=== PATIENT | male | born 1940 | race Caucasian/White ===

== ENCOUNTER 2018-08-14 03:06 | Inpatient (IN) | payer MEDICARE, OTHER ==
[~2018-08-14] VITALS: Ht 177.8 cm; Wt 53.5 kg
[2018-08-14] MEDS ORDERED: SODIUM CHLORIDE 0.9% 1,000 ML IV ONE (03:13)
--- NOTE | 2018-08-14 03:21 | NUR ---
PT ARRIVED VIA EMS GLF TRIPPED IN HOLE IN YARD. LEFT LEG ROTATED OUT. PAIN 10/26. VSS.
[2018-08-14] MEDS ORDERED: ONDANSETRON 2MG/ML, 2ML IVPush ONE (03:30)
[2018-08-14] MEDS ORDERED: SODIUM CHLORIDE FLUSH 10ML SYR IVF ONE (03:30)
[2018-08-14] MEDS ORDERED: MORPHINE SULFATE 4 MG/ML, 1ML IVPush PRN (03:30)
[2018-08-14] MEDS ORDERED: FLUT1DIS5 IH (03:37)
[2018-08-14] MEDS ORDERED: TIOT18CA INH (03:37)
[2018-08-14] MEDS ORDERED: ONDANSETRON 2MG/ML, 2ML ONE ×2 (03:39→09:45)
[2018-08-14 03:49] LABS: BASOPHILS # (AUTO) 0.05 x10^3/uL (0-0.1); BASOPHILS % (AUTO) 1 % (0-1); EOSINOPHILS # (AUTO) 0.01 x10^3/uL (0-0.4); EOSINOPHILS % (AUTO) 0 % (1-7); LYMPHOCYTES # (AUTO) 1.24 x10^3/uL (1-3.4); LYMPHOCYTES % (AUTO) 12 % (22-44); MD NO; MEAN CORPUSCULAR HGB CONC 34.1 g/dL (33.2-36.2); MEAN CORPUSCULAR VOLUME 94.1 fL (81-97); MEAN PLATELET VOLUME 9.5 fL (7.4-10.4); MONOCYTES # (AUTO) 0.75 x10^3/uL (0.2-0.8); MONOCYTES % (AUTO) 7 % (2-9); NEUTROPHILS # (AUTO) 8.17 x10^3/uL (1.8-6.8); NEUTROPHILS % (AUTO) 80 % (42-75); PLATELET COUNT 132 x10^3/uL (130-400); RED BLOOD COUNT 4.54 x10^6/uL (4.38-5.82); RED CELL DISTRIBUTION WIDTH 14.5 % (9.4-14.8)
[2018-08-14 03:58] LABS: INTERNATIONAL NORMALIZED RATIO 0.96 (0.93-1.1); PROTHROMBIN TIME 10.1 Seconds (9.6-11.5)
[2018-08-14 04:01] LABS: ALANINE AMINOTRANSFERASE 17 U/L (12-78); ALBUMIN 3.8 g/dL (3.4-5.0); ANION GAP 4 mmol/L (5-15); CHLORIDE 106 mmol/L (98-107); CREATININE 1.41 mg/dL (0.7-1.3)
[2018-08-14 04:03] LABS: ALKALINE PHOSPHATASE 88 U/L (45-117); BILIRUBIN,TOTAL 0.3 mg/dL (0.2-1.0); TOTAL PROTEIN 7.3 g/dL (6.4-8.2)
[2018-08-14] MEDS ORDERED: SIMVASTATIN PO (04:25)
[2018-08-14] MEDS ORDERED: MUCINEX PO (04:25)
[2018-08-14] MEDS ORDERED: RANITIDINE PO (04:25)
[2018-08-14] MEDS ORDERED: MORPHINE SULFATE 4 MG/ML, 1ML ONE (04:32)
[2018-08-14] MEDS ORDERED: CLOP75TA52 PO (04:37)
--- NOTE | 2018-08-14 04:41 | NUR ---
REPORT CALLED TO RUPESH CRUMP. MORPHINE IVP GIVEN FOR PAIN. HOSPITALIST AT BEDSIDE.
[2018-08-14 05:02] VITALS: BP 131/75
[2018-08-14] MEDS ORDERED: D5%-0.45NACL+KCL 20MEQ 1,000 ML IV SCH (05:36)
[2018-08-14] MEDS ORDERED: ENALAPRILAT 1.25 MG/ML, 2ML IVPush PRN (06:00)
[2018-08-14] MEDS ORDERED: PLEASE ENTER ALLERGIES MC SCH (06:00)
[2018-08-14] MEDS ORDERED: ONDANSETRON 2MG/ML, 2ML IVPush PRN (06:00)
[2018-08-14] MEDS ORDERED: [UNRECOGNIZED DRUG - REMARK] MC SCH (07:00)
[2018-08-14 07:15] VITALS: BP 123/74
[2018-08-14] MEDS: morphine SULFATE 10 MG/ML, 1ML IVPush PRN ×4 (08:06→17:00)
[2018-08-14] MEDS ORDERED: CEFAZOLIN 1,000 MG ONE (09:45)
[2018-08-14] MEDS ORDERED: PROPOFOL 10 MG/ML, 20ML ONE (09:45)
[2018-08-14] MEDS ORDERED: DEXAMETHASONE 4 MG/ML, 1ML ONE (09:45)
[2018-08-14] MEDS ORDERED: PHENYLEPHRINE 10 MG/ML ONE (09:45)
[2018-08-14] MEDS ORDERED: SUCCINYLCHOLINE 20 MG/ML, 10ML ONE (09:45)
[2018-08-14] MEDS ORDERED: ROCURONIUM 10MG/ML,5ML ONE (09:45)
[2018-08-14] MEDS: IPRATROPIUM 0.5 MG/2.5 ML INHA NPPB SCH ×3 (09:50→21:30)
[2018-08-14] MEDS: BUDESONIDE 0.5 MG/2 ML INHA NPPB SCH ×2 (09:50→21:30)
[2018-08-14 15:49] VITALS: BP 149/85
[2018-08-14] MEDS ORDERED: CYAN100072 PO (17:23)
[2018-08-14] MEDS ORDERED: ASPI-496 PO (17:23)
[2018-08-14] MEDS ORDERED: HALOPERIDOL 5 MG/ML IV PRN (19:30)
[2018-08-14] MEDS ORDERED: OXYcodone 5 MG/5 ML ORAL.SOL UDC PO PRN (19:30)
[2018-08-14] MEDS ORDERED: PROCHLORPERAZINE 5 MG/ML, 2ML IV PRN (19:30)
[2018-08-14] MEDS ORDERED: METOPROLOL 1 MG/ML, 5ML IV PRN (19:30)
[2018-08-14] MEDS ORDERED: hydrALAzine 20 MG/ML, 1ML IV PRN (19:30)
[2018-08-14] MEDS ORDERED: MEPERIDINE/PF 25MG/0.5ML IVPush PRN (19:30)
[2018-08-14] MEDS ORDERED: PROMETHAZINE 25 MG/ML, 1ML IV PRN (19:30)
[2018-08-14] MEDS ORDERED: LABETALOL 5MG/ML, 20ML IV PRN (19:30)
[2018-08-14] MEDS ORDERED: HYDROmorphone 2 MG/ML, 1ML IVPush PRN (19:30)
[2018-08-14] MEDS ORDERED: FENTANYL PF 100 MCG/2ML ONE ×2 (20:02→21:30)
[2018-08-14] MEDS ORDERED: OXYcodone 5 MG/5 ML ORAL.SOL UDC ONE (21:30)
[2018-08-14] MEDS: FENTANYL PF 100 MCG/2ML IV PRN ×3 (21:39→22:05)
[2018-08-14] MEDS ORDERED: NICOTINE 21 MG/24 HR PATCH.TD24 TD SCH (23:00)
[2018-08-15] MEDS: NICOTINE 21 MG/24 HR PATCH.TD24 TD SCH ×2 (00:30→23:22)
[2018-08-15 00:55] VITALS: BP 114/71
[2018-08-15] MEDS: morphine SULFATE 10 MG/ML, 1ML IVPush PRN ×3 (02:07→09:57)
[2018-08-15] MEDS: IPRATROPIUM 0.5 MG/2.5 ML INHA NPPB SCH ×4 (03:12→21:00)
[2018-08-15] MEDS: CEFAZOLIN 2,000 MG in SODIUM CHLORIDE 0.9% 50 ML IV SCH ×3 (04:03→19:46)
[2018-08-15] MEDS: D5%-0.45NACL+KCL 20MEQ 1,000 ML IV SCH ×2 (04:04→12:20)
[2018-08-15] MEDS: ONDANSETRON 2MG/ML, 2ML IV PRN ×2 (04:17→09:57)
[2018-08-15] MEDS ORDERED: D5%-0.45NACL+KCL 20MEQ 1,000 ML IV SCH (05:36)
[2018-08-15] MEDS: ENOXAPARIN 40 MG/0.4 ML SQ SCH (05:36)
[2018-08-15 05:47] LABS: BASOPHILS # (AUTO) 0.03 x10^3/uL (0-0.1); BASOPHILS % (AUTO) 0 % (0-1); EOSINOPHILS % (AUTO) 0 % (1-7); LYMPHOCYTES # (AUTO) 0.74 x10^3/uL (1-3.4); LYMPHOCYTES % (AUTO) 7 % (22-44); MD NO; MEAN CORPUSCULAR HEMOGLOBIN 31.4 pg (27.5-34.5); MEAN CORPUSCULAR VOLUME 95.2 fL (81-97); MEAN PLATELET VOLUME 9.8 fL (7.4-10.4); MONOCYTES # (AUTO) 1.04 x10^3/uL (0.2-0.8); MONOCYTES % (AUTO) 10 % (2-9); NEUTROPHILS # (AUTO) 8.91 x10^3/uL (1.8-6.8); NEUTROPHILS % (AUTO) 83 % (42-75); PLATELET COUNT 118 x10^3/uL (130-400); RED BLOOD COUNT 4.44 x10^6/uL (4.38-5.82); RED CELL DISTRIBUTION WIDTH 14.4 % (9.4-14.8)
[2018-08-15 05:57] LABS: ANION GAP 3 mmol/L (5-15); CALCIUM 8.5 mg/dL (8.5-10.1); CHLORIDE 102 mmol/L (98-107)
[2018-08-15 08:47] VITALS: BP 112/72
[2018-08-15] MEDS: BUDESONIDE 0.5 MG/2 ML INHA NPPB SCH ×2 (09:20→21:00)
[2018-08-15] MEDS: HYDROcodone/APAP 5/325 TABLET PO PRN ×2 (12:20→18:24)
[2018-08-15 13:25] VITALS: BP 114/70
[2018-08-15 20:21] VITALS: BP 112/68
[2018-08-16 00:30] VITALS: BP 130/78
[2018-08-16] MEDS: HYDROcodone/APAP 5/325 TABLET PO PRN ×4 (00:33→20:12)
[2018-08-16] MEDS: IPRATROPIUM 0.5 MG/2.5 ML INHA NPPB SCH ×4 (02:40→21:00)
[2018-08-16] MEDS: ENOXAPARIN 40 MG/0.4 ML SQ SCH (06:26)
[2018-08-16 07:24] LABS: ANION GAP 4 mmol/L (5-15); CALCIUM 8.2 mg/dL (8.5-10.1); CHLORIDE 100 mmol/L (98-107); CREATININE 1.19 mg/dL (0.7-1.3)
[2018-08-16 07:42] LABS: MEAN CORPUSCULAR HEMOGLOBIN 31.6 pg (27.5-34.5); MEAN CORPUSCULAR HGB CONC 33.5 g/dL (33.2-36.2); MEAN CORPUSCULAR VOLUME 94.2 fL (81-97); MEAN PLATELET VOLUME 9.9 fL (7.4-10.4); PLATELET COUNT 86 x10^3/uL (130-400); RED BLOOD COUNT 3.74 x10^6/uL (4.38-5.82); RED CELL DISTRIBUTION WIDTH 13.7 % (9.4-14.8)
[2018-08-16 08:18] LABS: BASOPHILS # (AUTO) 0.02 x10^3/uL (0-0.1); BASOPHILS % (AUTO) 0 % (0-1); EOSINOPHILS # (AUTO) 0.01 x10^3/uL (0-0.4); EOSINOPHILS % (AUTO) 0 % (1-7); LYMPHOCYTES # (AUTO) 1.42 x10^3/uL (1-3.4); LYMPHOCYTES % (AUTO) 17 % (22-44); MD SCAN; MONOCYTES # (AUTO) 0.84 x10^3/uL (0.2-0.8); MONOCYTES % (AUTO) 10 % (2-9); NEUTROPHILS # (AUTO) 6.13 x10^3/uL (1.8-6.8); NEUTROPHILS % (AUTO) 73 % (42-75)
[2018-08-16 08:40] VITALS: BP 101/62
[2018-08-16] MEDS: BUDESONIDE 0.5 MG/2 ML INHA NPPB SCH ×2 (09:00→21:00)
[2018-08-16 13:58] VITALS: BP 93/60
[2018-08-16 20:28] VITALS: BP 102/71
[2018-08-17 01:36] VITALS: BP 106/71
[2018-08-17] MEDS: IPRATROPIUM 0.5 MG/2.5 ML INHA NPPB SCH ×4 (03:00→20:15)
[2018-08-17] MEDS: ENOXAPARIN 40 MG/0.4 ML SQ SCH (05:23)
[2018-08-17 06:10] LABS: BASOPHILS # (AUTO) 0.02 x10^3/uL (0-0.1); BASOPHILS % (AUTO) 0 % (0-1); EOSINOPHILS # (AUTO) 0.05 x10^3/uL (0-0.4); EOSINOPHILS % (AUTO) 1 % (1-7); LYMPHOCYTES # (AUTO) 1.25 x10^3/uL (1-3.4); LYMPHOCYTES % (AUTO) 19 % (22-44); MD NO; MEAN CORPUSCULAR HGB CONC 32.7 g/dL (33.2-36.2); MEAN CORPUSCULAR VOLUME 94.8 fL (81-97); MEAN PLATELET VOLUME 10.5 fL (7.4-10.4); MONOCYTES # (AUTO) 0.61 x10^3/uL (0.2-0.8); MONOCYTES % (AUTO) 9 % (2-9); NEUTROPHILS # (AUTO) 4.52 x10^3/uL (1.8-6.8); NEUTROPHILS % (AUTO) 70 % (42-75); PLATELET COUNT 100 x10^3/uL (130-400); RED BLOOD COUNT 3.86 x10^6/uL (4.38-5.82)
[2018-08-17 06:13] LABS: ANION GAP 5 mmol/L (5-15); CALCIUM 8.6 mg/dL (8.5-10.1); CHLORIDE 99 mmol/L (98-107)
[2018-08-17 06:17] LABS: CREATININE 1.16 mg/dL (0.7-1.3)
[2018-08-17] MEDS: HYDROcodone/APAP 5/325 TABLET PO PRN ×3 (07:58→23:59)
[2018-08-17 08:09] VITALS: BP 118/71
[2018-08-17] MEDS: BUDESONIDE 0.5 MG/2 ML INHA NPPB SCH ×2 (09:00→20:15)
[2018-08-17 13:14] VITALS: BP 108/67
[2018-08-17 20:24] VITALS: BP 111/62
[2018-08-17] MEDS: NICOTINE 21 MG/24 HR PATCH.TD24 TD SCH (20:32)
[2018-08-18 02:07] VITALS: BP 110/70
[2018-08-18] MEDS: IPRATROPIUM 0.5 MG/2.5 ML INHA NPPB SCH ×2 (02:10→09:09)
[2018-08-18 05:53] LABS: ANION GAP 4 mmol/L (5-15); CALCIUM 8.5 mg/dL (8.5-10.1); CHLORIDE 100 mmol/L (98-107); CREATININE 1.16 mg/dL (0.7-1.3)
[2018-08-18] MEDS ORDERED: PANTOPROZOLE 40MG TABLET PO SCH (06:00)
[2018-08-18 06:18] LABS: BASOPHILS # (AUTO) 0.02 x10^3/uL (0-0.1); BASOPHILS % (AUTO) 0 % (0-1); EOSINOPHILS # (AUTO) 0.09 x10^3/uL (0-0.4); EOSINOPHILS % (AUTO) 2 % (1-7); LYMPHOCYTES # (AUTO) 1.37 x10^3/uL (1-3.4); LYMPHOCYTES % (AUTO) 23 % (22-44); MD SCAN; MEAN CORPUSCULAR HEMOGLOBIN 31.9 pg (27.5-34.5); MEAN CORPUSCULAR HGB CONC 33.5 g/dL (33.2-36.2); MEAN CORPUSCULAR VOLUME 95.2 fL (81-97); MEAN PLATELET VOLUME 9.9 fL (7.4-10.4); MONOCYTES # (AUTO) 0.76 x10^3/uL (0.2-0.8); MONOCYTES % (AUTO) 13 % (2-9); NEUTROPHILS # (AUTO) 3.79 x10^3/uL (1.8-6.8); NEUTROPHILS % (AUTO) 63 % (42-75); PLATELET COUNT 114 x10^3/uL (130-400); RED BLOOD COUNT 3.43 x10^6/uL (4.38-5.82); RED CELL DISTRIBUTION WIDTH 13.9 % (9.4-14.8)
[2018-08-18] MEDS: ENOXAPARIN 40 MG/0.4 ML SQ SCH (06:29)
[2018-08-18] MEDS: HYDROcodone/APAP 5/325 TABLET PO PRN ×2 (06:34→16:39)
[2018-08-18 07:43] VITALS: BP 123/71
[2018-08-18] MEDS: BUDESONIDE 0.5 MG/2 ML INHA NPPB SCH (09:10)
[2018-08-18] MEDS ORDERED: IPRATROPIUM 0.5 MG/2.5 ML INHA NPPB PRN (12:00)
[2018-08-18] MEDS ORDERED: HYDR-3237 PO (13:03)
[2018-08-18] MEDS ORDERED: NICO-487 TD (13:03)
[2018-08-18] MEDS ORDERED: PANT40TA5 PO (13:03)
[2018-08-18] MEDS ORDERED: ENOX40SY4 SQ (13:03)
[2018-08-18 13:36] VITALS: BP 103/68
== END 2018-08-18 17:00 | DRG 480 ==
LOC: ED 03:35 → EDIP 03:44 → 4NOR 04:50
PROVIDERS: ADMIT Family Medicine; ATTEND Family Medicine
PROC: 0QH736Z Insertion of Intramedullary Internal Fixation Device into Left Upper Femur, Percutaneous Approach (ICD-10-PCS; principal; 2018-08-14 16:00)
DX: S72.142A Displaced intertrochanteric fracture of left femur, initial encounter for closed fracture (principal); N17.0 Acute kidney failure with tubular necrosis; F17.200 Nicotine dependence, unspecified, uncomplicated; G89.11 Acute pain due to trauma; I73.9 Peripheral vascular disease, unspecified; J44.9 Chronic obstructive pulmonary disease, unspecified; K21.9 Gastro-esophageal reflux disease without esophagitis; N18.9 Chronic kidney disease, unspecified; W17.2XXA Fall into hole, initial encounter; Z99.81 Dependence on supplemental oxygen; Y93.89 Activity, other specified; Y92.89 Other specified places as the place of occurrence of the external cause
CPT/HCPCS: 36415; 71045; 76000; 80048; 80053; 85025; 85610; 85730; 93005; 94640; 96374; 96375; C1713; G0378; J0690; J1100; J1650; J2405; J2704; J3010; J7626; J7644; J0330; J2270; J2370; J3480; J7030